=== PATIENT | female | born 1950 | race Caucasian/White ===

== ENCOUNTER 2017-07-06 21:19 | Inpatient (IN) | payer OTHER ==
--- NOTE | 2017-07-06 21:38 | PDOC ---
Rapid Medical Evaluation Time Seen by Provider: 07/06/17 21:33 Medical Evaluation: 07/06/17 21:33 The patient presents with a chief complaint of: Blood in the urine/brownish color since Sunday. Admits to nausea and vomiting. Denies back pain, fevers, frequency and urgency I have performed a brief in-person evaluation of this patient; Pertinent physical exam findings: ambulatory, in no respiratory distress. No CVA tenderness I have ordered the following: UA, UC, CBC, CMP The patient will proceed to the ED for further evaluation.
[2017-07-06 21:39] VITALS: BMI 33.6
[2017-07-06 22:04] LABS: BASO % 0.4 % (0-2.0); HEMATOCRIT 37.7 % (32.4-45.2); HEMOGLOBIN 12.9 GM/dL (10.7-15.3); LYMPH % 33.8 % (8-40); MCH 28.9 pg (25.7-33.7); MCHC 34.1 g/dl (32.0-36.0); MEAN CELL VOLUME 84.6 fl (80-96); MEAN PLT VOLUME 9.8 fl (7.5-11.1); MONO % 10.8 % (3.8-10.2); PLATELET COUNT 151 K/MM3 (134-434); RBC 4.45 M/mm3 (3.60-5.2); RDW 14.8 % (11.6-15.6); WHITE BLOOD COUNT 4.2 K/mm3 (4.0-10.0)
[2017-07-06 22:13] LABS: URINE APPEARANCE CLEAR; URINE BILIRUBIN NEGATIVE (<2.0 mg/dL); URINE BLOOD 2+ (NEGATIVE); URINE COLOR AMBER; URINE GLUCOSE (UA) NEGATIVE (NEGATIVE); URINE KETONE NEGATIVE (NEGATIVE); URINE LEUK ESTERASE TRACE (NEGATIVE); URINE NITRITE NEGATIVE (NEGATIVE); URINE PROTEIN NEGATIVE (NEGATIVE); URINE UROBILINOGEN 4.0 E.U/dl mg/dL (0.2-1.0)
[2017-07-06 22:17] LABS: EPI CELLS RARE /HPF (FEW); URINE MUCUS MODERATE
--- NOTE | 2017-07-06 22:23 | PDOC ---
History of Present Illness - General History Source: Patient, Family Exam Limitations: No Limitations - History of Present Illness Initial Comments: 07/06/17 22:41 The patient is a 66 year old female with past significant history of hypertension, CVA( in 2013, with residual left sided facial droop), and cholelithiasis, who presents to the emergency department accompanied by granddaughter with abdominal pain and change in urine color for several days. The patient reports her symptoms began 5 days ago with abdominal pain, which she describes as a diffuse spasm. The patient reports hematuria since Sunday ( 07/03/2017), which caused concern resulting in the primary reason for coming to the ER. She denies any associated dysuria, frequency, urgency, or flank pain. The patient reports chills, hot flashes, nausea, and vomiting (nonbloody/ nonbilious). The patients daughter reports the patient was looking pale before coming to the ER. Granddaughter also reports the patients blood pressure is 159/ 76 mmHg. The patient reports her symptoms are not similar to her previous cholelithiasis flares. Allergies: NKDA Past Surgical History: No known past surgeries Social History: No history of smoking, ETOH or recreational drugs <Patricia Fong - Last Filed: 07/06/17 22:44> <Toby Lynn - Last Filed: 07/07/17 00:38> - General History Source: Patient, Family Exam Limitations: No Limitations <Bravo Chen - Last Filed: 07/07/17 01:50> - General Chief Complaint: Hematuria Stated Complaint: Urinary Problem/ABD PAIN Time Seen by Provider: 07/06/17 21:33 Past History <Patricia Fong - Last Filed: 07/06/17 22:44> <Toby Lynn - Last Filed: 07/07/17 00:38> - Suicide/Smoking/Psychosocial Hx Smoking History: Never smoked Have you smoked in the past 12 months: No Information on smoking cessation initiated: No Hx Alcohol Use: No Drug/Substance Use Hx: No <Bravo Chen - Last Filed: 07/07/17 01:50> - Past Medical History Allergies/Adverse Reactions: Allergies Allergy/AdvReac Type Severity Reaction Status Date / Time No Known Allergies Allergy Verified 07/06/17 21:39 Home Medications: Ambulatory Orders NK [No Known Home Medication] 07/06/17 Review of Systems - Review of Systems Able to Perform ROS?: Yes Comments:: 07/06/17 22:42 GENERAL/CONSTITUTIONAL: (+) chills and hot flashes. No fever or weakness. HEAD, EYES, EARS, NOSE AND THROAT: No change in vision. No ear pain or discharge. No sore throat. CARDIOVASCULAR: No chest pain or shortness of breath. RESPIRATORY: No cough, wheezing, or hemoptysis. GASTROINTESTINAL: (+)nausea, vomiting, No diarrhea or constipation. GENITOURINARY: (+) hematuria No dysuria, frequency, no flank pain. MUSCULOSKELETAL: No joint or muscle swelling or pain. No neck or back pain. SKIN: No rash NEUROLOGIC: No headache, vertigo, loss of consciousness, or change in strength/ sensation. ENDOCRINE: No increased thirst. No abnormal weight change. HEMATOLOGIC/LYMPHATIC: No anemia, easy bleeding, or history of blood clots. ALLERGIC/IMMUNOLOGIC: No hives or skin allergy. <Patricia Fong - Last Filed: 07/06/17 22:44> *Physical Exam - Vital Signs Last Vital Signs Temp Pulse Resp BP Pulse Ox 98.1 F 64 18 161/82 97 07/06/17 21:33 07/06/17 21:33 07/06/17 21:33 07/06/17 21:33 07/06/17 21:33 - Physical Exam Comments: 07/06/17 22:42 GENERAL: Awake, alert, and fully oriented, in no acute distress HEAD: Left facial droop, No signs of trauma EYES: PERRLA, EOMI, sclera anicteric, conjunctiva clear ENT: Auricles normal inspection, hearing grossly normal, nares patent, oropharynx clear without exudates. Moist mucosa NECK: Normal ROM, supple, no lymphadenopathy, JVD, or masses LUNGS: Breath sounds equal, clear to auscultation bilaterally. No wheezes, and no crackles HEART: Regular rate and rhythm, normal S1 and S2, no murmurs, rubs or gallops ABDOMEN: Soft, nontender, normoactive bowel sounds. No guarding, no rebound. No masses EXTREMITIES: Normal range of motion, no edema. No clubbing or cyanosis. No cords, erythema, or tenderness NEUROLOGICAL: Cranial nerves II through XII grossly intact. Normal speech, normal gait SKIN: Warm, Dry, normal turgor, no rashes or lesions noted. <Patricia Fong - Last Filed: 07/06/17 22:44> - Vital Signs Last Vital Signs Temp Pulse Resp BP Pulse Ox 98.1 F 64 18 161/82 97 07/06/17 21:33 07/06/17 21:33 07/06/17 21:33 07/06/17 21:33 07/06/17 21:33 <Toby Lynn - Last Filed: 07/07/17 00:38> - Vital Signs Last Vital Signs Temp Pulse Resp BP Pulse Ox 98.1 F 64 18 161/82 97 07/06/17 21:33 07/06/17 21:33 07/06/17 21:33 07/06/17 21:33 07/06/17 21:33 <Bravo Chen - Last Filed: 07/07/17 01:50> ED Treatment Course - LABORATORY CBC & Chemistry Diagram: 07/06/17 21:58 07/06/17 21:58 - ADDITIONAL ORDERS Additional order review: Laboratory Results 07/06/17 21:58 Urine Color Aliza Urine Appearance Clear Urine pH 5.0 Ur Specific [place] 1.023 Urine Protein Negative Urine Glucose (UA) Negative Urine Ketones Negative Urine Blood 2+ H Urine Nitrite Negative Urine Bilirubin Negative Urine Urobilinogen 4.0 e.u/dl H Ur Leukocyte Esterase Trace Urine WBC (Auto) 2 Urine RBC (Auto) 12 Ur Epithelial Cells Rare Urine Mucus Moderate 07/06/17 21:58 RBC 4.45 MCV 84.6 MCHC 34.1 RDW 14.8 MPV 9.8 Neutrophils % 55.0 Lymphocytes % 33.8 Monocytes % 10.8 H Eosinophils % 0.0 Basophils % 0.4 <Patricia Fong - Last Filed: 07/06/17 22:44> - LABORATORY CBC & Chemistry Diagram: 07/06/17 21:58 07/06/17 21:58 - ADDITIONAL ORDERS Additional order review: Laboratory Results 07/06/17 07/06/17 07/06/17 23:02 21:58 21:58 Sodium 142 Potassium 4.0 Chloride 108 H Carbon Dioxide 29 Anion Gap 5 L BUN 16 Creatinine 0.8 Creat Clearance w eGFR > 60 Random Glucose 87 Calcium 8.4 L Total Bilirubin 1.7 H AST 181 H ALT 302 H Alkaline Phosphatase 251 H Total Protein 6.7 Albumin 3.7 Lipase 356 Urine Color Aliza Urine Appearance Clear Urine pH 5.0 Ur Specific [place] 1.023 Urine Protein Negative Urine Glucose (UA) Negative Urine Ketones Negative Urine Blood 2+ H Urine Nitrite Negative Urine Bilirubin Negative Urine Urobilinogen 4.0 e.u/dl H Ur Leukocyte Esterase Trace Urine WBC (Auto) 2 Urine RBC (Auto) 12 Ur Epithelial Cells Rare Urine Mucus Moderate 07/06/17 21:58 RBC 4.45 MCV 84.6 MCHC 34.1 RDW 14.8 MPV 9.8 Neutrophils % 55.0 Lymphocytes % 33.8 Monocytes % 10.8 H Eosinophils % 0.0 Basophils % 0.4 - RADIOLOGY Radiograph Interpretation: 07/07/17 00:38 EXAM: US Abdomen INTERPRETED BY: Dr. Espinoza REVIEWED BY: Dr. Chen IMPRESSION: The liver is normal in size and contour with increased echogenicity compatible with steatosis. No intrahepatic biliary dilatation. No hepatic masses visualized. Prominent hepatic vessels are noted concerning for hepatic congestion. The gallbladder is surgically absent. Prominent common bile duct measuring up to 8.3 mm, possibly post cholecystectomy changes. The right kidney , visualized portions of the pancreas and visualized portions of the abdominal aorta are unremarkable <Toby Lynn - Last Filed: 07/07/17 00:38> - LABORATORY CBC & Chemistry Diagram: 07/06/17 21:58 07/06/17 21:58 - ADDITIONAL ORDERS Additional order review: 07/06/17 21:58 RBC 4.45 MCV 84.6 MCHC 34.1 RDW 14.8 MPV 9.8 Neutrophils % 55.0 Lymphocytes % 33.8 Monocytes % 10.8 H Eosinophils % 0.0 Basophils % 0.4 <Bravo Chen - Last Filed: 07/07/17 01:50> Medical Decision Making - Medical Decision Making 07/06/17 22:23 A portion of this note was documented by scribe services under my direction. I have reviewed the details of the note, within reason, and agree with the documentation with the following case summary and management plan written by me. Patient treated in the ED. Nursing notes are reviewed and incorporated into the medical decision-making. Vital signs reviewed. Peripheral IV access obtained by the nurse, laboratory studies are drawn and sent, reviewed and interpreted by myself. Vital Signs Temp Pulse Resp BP Pulse Ox 98.1 F 64 18 161/82 97 07/06/17 21:33 07/06/17 21:33 07/06/17 21:33 07/06/17 21:33 07/06/17 21:33 58-year-old female with past medical history of hypertension, stroke with residual left facial droop presents with dark color and hematuria urine for 3 days. Patient noticed that they have having epigastric abdominal discomfort that resolved persistently had discolored urination. Denies any associated dysuria, urinary frequency. Denies any new medications. Denies fevers or chills. Because a discussion urine, family prompted to bring the patient to the ED for evaluation. Differential includes cystitis, acute kidney injury, hyperbilirubinemia. Patient does have a history of gallstones. However, patient has no right upper quadrant pain. She also potentially consider choledocholithiasis. However, we' ll need labs and urinalysis reassess. 07/07/17 01:17 CBC, BMP 07/06/17 21:58 07/06/17 21:58 CMP Sodium 142 mmol/L (136-145) 07/06/17 21:58 Potassium 4.0 mmol/L (3.5-5.1) 07/06/17 21:58 Chloride 108 mmol/L (98-107) H 07/06/17 21:58 Carbon Dioxide 29 mmol/L (21-32) 07/06/17 21:58 Anion Gap 5 (8-16) L 07/06/17 21:58 BUN 16 mg/dL (7-18) 07/06/17 21:58 Creatinine 0.8 mg/dL (0.55-1.02) 07/06/17 21:58 Creat Clearance w eGFR > 60 (>60) 07/06/17 21:58 Random Glucose 87 mg/dL (74-106) 07/06/17 21:58 Calcium 8.4 mg/dL (8.5-10.1) L 07/06/17 21:58 Total Bilirubin 1.7 mg/dL (0.2-1.0) H 07/06/17 21:58 AST 181 U/L (15-37) H 07/06/17 21:58 ALT 302 U/L (12-78) H 07/06/17 21:58 Alkaline Phosphatase 251 U/L (45-117) H 07/06/17 21:58 Total Protein 6.7 g/dl (6.4-8.2) 07/06/17 21:58 Albumin 3.7 g/dl (3.4-5.0) 07/06/17 21:58 Lipase 356 U/L (73-393) 07/06/17 23:02 Noted to have elevated LFTs. Ultrasound was ordered given these findings. Demonstrates post surgical changes and 8.3 mm CBD. Given these findings, decision was made to admit the patient to the hospital for further evaluation. 07/07/17 01:[address] Peraza. Accepted to med/surg admission. Case discussed in detail with admitting physician including history, physical exam and ancillary studies. Admitting physician has assumed care for the patient, will follow all pending diagnostics and will complete the evaluation and treatment. 07/07/17 01:50 <Bravo Chen - Last Filed: 07/07/17 01:50> *DC/Admit/Observation/Transfer - Attestations Scribe Attestion: 07/06/17 22:44 Documentation prepared by Patricia Fong, acting as medical assistant for Bravo Chen MD. <Patricia Fong - Last Filed: 07/06/17 22:44> <Toby Lynn - Last Filed: 07/07/17 00:38> - Discharge Dispostion Admit: Yes <Bravo Chen - Last Filed: 07/07/17 01:50> Diagnosis at time of Disposition: Elevated LFTs - Discharge Dispostion Condition at time of disposition: Stable - Referrals Referrals: ON STAFF,NOT [Primary Care Provider] -
[2017-07-06 22:27] LABS: ALBUMIN 3.7 g/dl (3.4-5.0); ALK PHOS 251 U/L (45-117); ANION GAP 5 (8-16); BILIRUBIN,TOTAL 1.7 mg/dL (0.2-1.0); BLOOD UREA NITROGEN 16 mg/dL (7-18); CALCIUM 8.4 mg/dL (8.5-10.1); CHLORIDE 108 mmol/L (98-107); CO2 29 mmol/L (21-32); CREATININE 0.8 mg/dL (0.55-1.02); GLUCOSE,RANDOM 87 mg/dL (74-106); SGOT/AST 181 U/L (15-37); SGPT/ALT 302 U/L (12-78); SODIUM 142 mmol/L (136-145); TOT PROT 6.7 g/dl (6.4-8.2)
[2017-07-07] MEDS ORDERED: SODIUM CHLORIDE 1,000 ML IV STA (01:42)
[2017-07-07] MEDS ORDERED: ACETAMINOPHEN 1000 MG/100 ML VIAL (NON FORMULARY) IVPB PRN (02:45)
[2017-07-07] MEDS ORDERED: AMPICILLIN NA/SULBACTAM NA 1.5 GM in SODIUM CHLORIDE 100 ML IVPB ONE ×2 (02:46→06:00)
--- NOTE | 2017-07-07 02:48 | HP ---
CHIEF COMPLAINT: "i have a stomach spasm" PCP: none, just moved to [place] HISTORY OF PRESENT ILLNESS: This is a 66 yo f with PMH of cholelithiasis, HTN, CVA( in 2013, with residual left sided facial droop), who presents due to abdominal pain and red urine. Abd pain occurred on sun after a fatty meal, was epigastric radiating to RUW, spasmic, sharp, 9/10, lasted 20 min and resolved spontaneously, however patient has not felt well all week and experienced rigors on sunday. She has also lost her appetite. On sun she noticed that her urine turned dark red, which has never happened before, although she has been worked up for microcytic hematuria with custodial laborer years ago w/o any established dx or treatment. She reports a long history of episodic RUQ pain, especially after meals, since youth. She was told on prior occasion that she has cholelithiasis and fatty liver. She was hospitalized in 2013 for abd pain, n/v, was diagnosed with appendicitis and underwent lap appe.She currently denies f/c, abd pain, n/v/d/constipation, melena, hematochezia, dysuria, flank pain, cp, sob, sough, h/a. Abd US in ED shows steatosis, No intrahepatic biliary dilatation. Prominent hepatic vessels concerning for hepatic congestion. The gallbladder is surgically absent. Prominent common bile duct measuring up to 8.3 mm. She takes BP medications, her list is on [facility] ER course was notable for: (1)labs (2)abd us (3)IVF Recent Travel: denies PAST MEDICAL HISTORY: as above PAST SURGICAL HISTORY: as above Social History: lives with daughter, granddaughter Smoking: denies Alcohol:denies Drugs: denies Family History: noncontributory Allergies No Known Allergies Allergy (Verified 07/06/17 21:39) HOME MEDICATIONS: Home Medications Medication Instructions Recorded NK [No Known Home Medication] 07/06/17 REVIEW OF SYSTEMS CONSTITUTIONAL: Absent: fever, diaphoresis, generalized weakness, malaise, loss of appetite, weight change HEENT: Absent: rhinorrhea, nasal congestion, throat pain CARDIOVASCULAR: Absent: chest pain, syncope, palpitations, irregular heart rate, lightheadedness , peripheral edema RESPIRATORY: Absent: cough, shortness of breath GASTROINTESTINAL: Absent: abdominal distension, nausea, vomiting, diarrhea, constipation, melena, hematochezia GENITOURINARY: Absent: dysuria, flank pain, genital pain MUSCULOSKELETAL: Absent: back pain, neck pain SKIN: Absent: rash, itching, pallor HEMATOLOGIC/IMMUNOLOGIC: Absent: easy bleeding, easy bruising ENDOCRINE: Absent: unexplained weight gain, unexplained weight loss, heat intolerance, cold intolerance NEUROLOGIC: Absent: headache, dizziness, unsteady gait, bladder or bowel incontinence PSYCHIATRIC: Absent: anxiety, depression PHYSICAL EXAMINATION Vital Signs - 24 hr 07/06/17 21:33 Temperature 98.1 F Pulse Rate 64 Respiratory 18 Rate Blood Pressure 161/82 O2 Sat by Pulse 97 Oximetry (%) GENERAL: Awake, alert, and fully oriented, in no acute distress. HEAD: Normal with no signs of trauma. EYES: Pupils equal, round and reactive to light, extraocular movements intact, sclera anicteric, conjunctiva clear. No lid lag. EARS, NOSE, THROAT: Moist mucous membranes. NECK: supple without JVD LUNGS: Breath sounds equal, clear to auscultation bilaterally. HEART: Regular rate and rhythm, normal S1 and S2 ABDOMEN: Soft, nontender, not distended, normoactive bowel sounds, no guarding, no rebound, no masses. Alonzo negative MUSCULOSKELETAL: No CVA tenderness. UPPER EXTREMITIES: 2+ pulses, warm, well-perfused. No cyanosis. No clubbing. No peripheral edema. LOWER EXTREMITIES: 2+ pulses, warm, well-perfused. No calf tenderness. No peripheral edema. NEUROLOGICAL: residual L facial droop, L hearing loss. Normal speech. strenght 5/5 b/l in all extremities, sensation intact. PSYCHIATRIC: Cooperative. Good eye contact. Appropriate mood and affect. SKIN: Warm, dry Laboratory Results - last 24 hr 07/06/17 07/06/17 07/06/17 21:58 21:58 21:58 WBC 4.2 RBC 4.45 Hgb 12.9 Hct 37.7 MCV 84.6 MCH 28.9 MCHC 34.1 RDW 14.8 Plt Count 151 MPV 9.8 Neutrophils % 55.0 Lymphocytes % 33.8 Monocytes % 10.8 H Eosinophils % 0.0 Basophils % 0.4 Sodium 142 Potassium 4.0 Chloride 108 H Carbon Dioxide 29 Anion Gap 5 L BUN 16 Creatinine 0.8 Creat Clearance w eGFR > 60 Random Glucose 87 Calcium 8.4 L Total Bilirubin 1.7 H AST 181 H ALT 302 H Alkaline Phosphatase 251 H Total Protein 6.7 Albumin 3.7 Lipase Urine Color Aliza Urine Appearance Clear Urine pH 5.0 Ur Specific [place] 1.023 Urine Protein Negative Urine Glucose (UA) Negative Urine Ketones Negative Urine Blood 2+ H Urine Nitrite Negative Urine Bilirubin Negative Urine Urobilinogen 4.0 e.u/dl H Ur Leukocyte Esterase Trace Urine WBC (Auto) 2 Urine RBC (Auto) 12 Ur Epithelial Cells Rare Urine Mucus Moderate 07/06/17 23:02 WBC RBC Hgb Hct MCV MCH MCHC RDW Plt Count MPV Neutrophils % Lymphocytes % Monocytes % Eosinophils % Basophils % Sodium Potassium Chloride Carbon Dioxide Anion Gap BUN Creatinine Creat Clearance w eGFR Random Glucose Calcium Total Bilirubin AST ALT Alkaline Phosphatase Total Protein Albumin Lipase 356 Urine Color Urine Appearance Urine pH Ur Specific [place] Urine Protein Urine Glucose (UA) Urine Ketones Urine Blood Urine Nitrite Urine Bilirubin Urine Urobilinogen Ur Leukocyte Esterase Urine WBC (Auto) Urine RBC (Auto) Ur Epithelial Cells Urine Mucus ASSESSMENT/PLAN: This is a 66 yo f with PMH of cholelithiasis, HTN, CVA( in 2013, with residual left sided facial droop), who presents due to abdominal pain and red urine. Acute transaminitis, hyperbilirubinemia, bilirubinuria -suspicious for choledocholithiasis -RUQ US appreciated. absent GB w/o history of cholecystectomy. dilated cbd 8mm. hepatic steatosis. f/u abd CT w contrast -afebrile, no leukocytosis -IVF hydration -f/u cultures -One dose iv Unasyn ppx -NPO -coags, type/screen -Gi consult for possible MRCP Chronic Microscopic hematuria -2+ on ua -f/u outpatient HTN -161/82 -will call granddaughter in the morning to obtain home med list and will restart CVA -stable residual deficits FEN NS @ 100 lytes stable npo SCDs Dispo: adm ms Problem List - Problem (1) Hyperbilirubinemia Code(s): E80.6 - OTHER DISORDERS OF BILIRUBIN METABOLISM (2) Bilirubinuria Code(s): R82.2 - BILIURIA (3) HTN (hypertension) Code(s): I10 - ESSENTIAL (PRIMARY) HYPERTENSION (4) CVA, old, alterations of sensations Code(s): I69.398 - OTHER SEQUELAE OF CEREBRAL INFARCTION; R20.9 - UNSPECIFIED DISTURBANCES OF SKIN SENSATION (5) Elevated LFTs Code(s): R79.89 - OTHER SPECIFIED ABNORMAL FINDINGS OF BLOOD CHEMISTRY Visit type - Emergency Visit Emergency Visit: Yes ED Registration Date: 07/07/17 Care time: The patient presented to the Emergency Department on the above date and was hospitalized for further evaluation of their emergent condition. - New Patient This patient is new to me today: Yes Date on this admission: 07/07/17 - Critical Care Critical Care patient: No Hospitalist Screening - Colonoscopy Questionnaire Colonoscopy Questionnaire: Colonoscopy Questionnaire - Patient: 50 - 75 years old and never had a screening colonoscopy: No History of colon or rectal polyps, or CA: No History of IBD, Crohn's disease or UC: No History of abdominal radiation therapy as a child: No - Relative: 1 with colon or rectal CA, or polyps at age 60 or younger: No Colon or rectal CA diagnosed at age 45 or younger: No Multiple relatives with colon or rectal CA: No - Outcome: Screening Result: Negative Screen
[2017-07-07] MEDS: SODIUM CHLORIDE 1,000 ML IV SCH (03:54)
--- NOTE | 2017-07-07 06:03 | PN ---
Teaching Attending Note Name of Resident: Melina Gipson ATTENDING PHYSICIAN STATEMENT I saw and evaluated the patient. I reviewed the resident's note and discussed the case with the resident. I agree with the resident's findings and plan as documented. SUBJECTIVE: 66 y/o female presented to the hospital for RUQ pain found to have elevated liver enzymes and dilated common bile duct OBJECTIVE: AAOX3 s1 and S2 RRR RUQ pain with deep palpation no edema lungs CTA ASSESSMENT AND PLAN: This is a 66 yo f with PMH of cholelithiasis, HTN, CVA( in 2013, with residual left sided facial droop), who presents due to abdominal pain and red urine. Acute transaminitis, hyperbilirubinemia, bilirubinuria -suspicious for choledocholithiasis -RUQ US appreciated. absent GB w/o history of cholecystectomy. dilated cbd 8mm. hepatic steatosis. f/u abd CT w contrast -IVF hydration -f/u cultures -One dose iv Unasyn ppx -NPO -Gi consult for possible MRCP Chronic Microscopic hematuria -2+ on ua -f/u outpatient HTN -161/82 -will call granddaughter in the morning to obtain home med list and will restart
[2017-07-07 08:17] LABS: BASO % 0.1 % (0-2.0); HEMATOCRIT 35.5 % (32.4-45.2); LYMPH % 29.5 % (8-40); MCH 28.5 pg (25.7-33.7); MCHC 33.8 g/dl (32.0-36.0); MEAN CELL VOLUME 84.4 fl (80-96); MEAN PLT VOLUME 9.9 fl (7.5-11.1); MONO % 9.6 % (3.8-10.2); NEUT % 60.8 % (42.8-82.8); PLATELET COUNT 117 K/MM3 (134-434); RBC 4.21 M/mm3 (3.60-5.2); RDW 15.1 % (11.6-15.6); WHITE BLOOD COUNT 3.2 K/mm3 (4.0-10.0)
[2017-07-07 08:34] LABS: INR 1.08 (0.82-1.09); PROTHROMBIN TIME (PATIENT) 12.2 SEC (9.98-11.88)
[2017-07-07 08:40] LABS: ALBUMIN 3.5 g/dl (3.4-5.0); ANION GAP 4 (8-16); BLOOD UREA NITROGEN 14 mg/dL (7-18); CALCIUM 8.5 mg/dL (8.5-10.1); CHLORIDE 110 mmol/L (98-107); CO2 29 mmol/L (21-32); CREATININE 0.7 mg/dL (0.55-1.02); GLUCOSE,RANDOM 82 mg/dL (74-106); MAGNESIUM 2.1 mg/dL (1.8-2.4); PHOSPHOROUS 2.8 mg/dL (2.5-4.9); POTASSIUM 4.5 mmol/L (3.5-5.1); SGOT/AST 144 U/L (15-37); SGPT/ALT 259 U/L (12-78); SODIUM 143 mmol/L (136-145)
[2017-07-07 08:42] LABS: ALK PHOS 225 U/L (45-117)
--- NOTE | 2017-07-07 14:24 | CON.GI ---
Consult - Past Medical History ...: No - Alcohol/Substance Use Hx Alcohol Use: No - Smoking History Smoking history: Never smoked Have you smoked in the past 12 months: No Home Medications - Allergies Allergies/Adverse Reactions: Allergies Allergy/AdvReac Type Severity Reaction Status Date / Time No Known Allergies Allergy Verified 07/06/17 21:39 - Home Medications Home Medications: Ambulatory Orders NK [No Known Home Medication] 07/06/17 Physical Exam-GI Vital Signs: Vital Signs Temperature 98.2 F 07/07/17 04:31 Pulse Rate 61 07/07/17 04:31 Respiratory Rate 18 07/07/17 04:31 Blood Pressure 143/77 07/07/17 04:31 O2 Sat by Pulse Oximetry (%) 98 07/07/17 04:31 Labs: CBC, BMP 07/07/17 07:27 07/07/17 07:27 INR, PTT INR 1.08 (0.82-1.09) 07/07/17 07:27
--- NOTE | 2017-07-07 14:56 | PN ---
Physical Exam: SUBJECTIVE: Patient seen and examined Patient is c/o having orange color urine, also was having chills at home. OBJECTIVE: Vital Signs Temperature 98.2 F 07/07/17 04:31 Pulse Rate 61 07/07/17 04:31 Respiratory Rate 18 07/07/17 04:31 Blood Pressure 143/77 07/07/17 04:31 O2 Sat by Pulse Oximetry (%) 98 07/07/17 04:31 GENERAL: The patient is awake, alert, and fully oriented, in no acute distress. HEAD: Normal with no signs of trauma. EYES: PERRL, extraocular movements intact, sclera anicteric, conjunctiva clear. ENT: Ears normal, oropharynx clear without exudates, moist mucous membranes. NECK: Trachea midline, full range of motion, supple. LUNGS: Breath sounds equal, clear to auscultation bilaterally, no wheezes, no crackles, no accessory muscle use. HEART: Regular rate and rhythm, S1, S2 positive . ABDOMEN: Soft, midepigastric mild tenderness , nondistended, normoactive bowel sounds, no guarding, no rebound. Mild splenomegaly. EXTREMITIES: 2+ pulses, warm, well-perfused, no edema. NEUROLOGICAL: Cranial nerves II through XII grossly intact. Normal speech, gait not observed. PSYCH: Normal mood, normal affect. SKIN: Warm, dry, normal turgor, no rashes or lesions noted CBCD WBC 3.2 K/mm3 (4.0-10.0) L 07/07/17 07:27 RBC 4.21 M/mm3 (3.60-5.2) 07/07/17 07:27 Hgb 12.0 GM/dL (10.7-15.3) 07/07/17 07:27 Hct 35.5 % (32.4-45.2) 07/07/17 07:27 MCV 84.4 fl (80-96) 07/07/17 07:27 MCHC 33.8 g/dl (32.0-36.0) 07/07/17 07:27 RDW 15.1 % (11.6-15.6) 07/07/17 07:27 Plt Count 117 K/MM3 (134-434) L D 07/07/17 07:27 MPV 9.9 fl (7.5-11.1) 07/07/17 07:27 CMP Sodium 143 mmol/L (136-145) 07/07/17 07:27 Potassium 4.5 mmol/L (3.5-5.1) 07/07/17 07:27 Chloride 110 mmol/L (98-107) H 07/07/17 07:27 Carbon Dioxide 29 mmol/L (21-32) 07/07/17 07:27 Anion Gap 4 (8-16) L 07/07/17 07:27 BUN 14 mg/dL (7-18) 07/07/17 07:27 Creatinine 0.7 mg/dL (0.55-1.02) 07/07/17 07:27 Creat Clearance w eGFR > 60 (>60) 07/07/17 07:27 Random Glucose 82 mg/dL (74-106) 07/07/17 07:27 Calcium 8.5 mg/dL (8.5-10.1) 07/07/17 07:27 Total Bilirubin 2.0 mg/dL (0.2-1.0) H 07/07/17 07:27 AST 144 U/L (15-37) H 07/07/17 07:27 ALT 259 U/L (12-78) H 07/07/17 07:27 Alkaline Phosphatase 225 U/L (45-117) H 07/07/17 07:27 Total Protein 6.0 g/dl (6.4-8.2) L 07/07/17 07:27 Albumin 3.5 g/dl (3.4-5.0) 07/07/17 07:27 Current Medications Generic Name Dose Route Start Last Admin Trade Name Mason PRN Reason Stop Dose Admin Acetaminophen 1,000 mg 07/07/17 02:45 Ofirmev Injection - IVPB Q6H PRN PAIN LEVEL 1-5 Sodium Chloride 1,000 mls @ 100 mls/hr 07/07/17 02:45 07/07/17 03:54 Normal Saline - IV 100 mls/hr ASDIR ALDAIR Administration Home Medications Medication Instructions Recorded NK [No Known Home Medication] 07/06/17 A/P: This is a 66 yo f with PMHx of cholelithiasis, HTN, CVA( in 2013, with residual left sided facial droop), who presents due to abdominal pain and red urine. # Acute midabdominal pain with elevated LFTs with hyperbilirubinuria going for MRI r/o choledocholithiasis, c/o having Rigors on and off -RUQ US appreciated. absent GB w/o history of cholecystectomy. dilated cbd 8mm. hepatic steatosis. f/u abd CT w contrast continue IVF hydration, Iv antibiotic Rocephin/flagyl IV , NPO , Gi consult appreciated. -Gi consult for possible MRCP #HTN :will call granddaughter in the morning to obtain home med list and will restart # Chronic Microscopic hematuria , patient has no urinary symptoms , f/u outpatient DVT Px: scds, early ambulation Visit type - Emergency Visit Emergency Visit: Yes ED Registration Date: 07/07/17 Care time: The patient presented to the Emergency Department on the above date and was hospitalized for further evaluation of their emergent condition. - New Patient This patient is new to me today: Yes Date on this admission: 07/08/17 - Critical Care Critical Care patient: No - Discharge Referral Referred to [facility] Med P.C.: No
[2017-07-07] MEDS ORDERED: CEFTRIAXONE 1 GM in DEXTROSE 5%-WATER - 100 ML IVPB SCH (15:15)
--- NOTE | 2017-07-07 17:31 | CON.GI ---
Consult Consult Specialty:: GI Reason for Consultation:: Abnormal liver ezymes - History of Present Illness History of Present Illness: Chart reviewed. Evens noted. A 66F with RUQ abdominal pain x 1 day on Sunday. Had chills and hematurea, w/o dysurea, from Sunday to admission. No nausea, vomiting, diarrhea, jaundice, weight loss, dysphagia, or odynophagia. Noted to have cholestasis and hepatitis pattern on blood work on admission. No gross hematurea, but dark yellow urine noted while in the hospital. Had MRI and CT of the A/P in 2017 - fatty liver. Had normal EGD and colonoscopy in 2017 in [place] [address]. Frey. Reports having appendectomy in 2014 at [facility]. Denies having cholecystectomy, but imaging reports post yessenia changes. This am appears comfortable, not in diostress. No abdominal symptoms, or tenderness on exam. US of the liver - s/p cholesystectomy, CBD [address] - ? choledocolithiasis ?GB remnant, CBD 8 mm. - History Source History Provided By: Patient, Medical Record - Past Medical History ...: No - Alcohol/Substance Use Hx Alcohol Use: No - Smoking History Smoking history: Never smoked Have you smoked in the past 12 months: No Home Medications - Allergies Allergies/Adverse Reactions: Allergies Allergy/AdvReac Type Severity Reaction Status Date / Time No Known Allergies Allergy Verified 07/06/17 21:39 - Home Medications Home Medications: Ambulatory Orders Escitalopram Oxalate [Lexapro -] 10 tab PO DAILY 07/07/17 Meclizine HCl 25 tab PO DAILY 07/07/17 Metoprolol Tartrate 25 tab PO BID 07/07/17 Omeprazole 20 mg PO DAILY 07/07/17 Simvastatin 10 mg PO HS 07/07/17 Temazepam [Restoril] 15 PO HS 07/07/17 Vitamin B Complex 1 tablet PO DAILY 07/07/17 Vitamin D - WEEKLY 07/07/17 Review of Systems Findings/Remarks: as per HPI, H&P Physical Exam-GI Vital Signs: Vital Signs Temperature 98.1 F 07/07/17 14:59 Pulse Rate 53 L 07/07/17 14:59 Respiratory Rate 18 07/07/17 14:59 Blood Pressure 111/61 07/07/17 14:59 O2 Sat by Pulse Oximetry (%) 98 07/07/17 09:00 Constitutional: Yes: Well Nourished, No Distress, Calm Eyes: Yes: Conjunctiva Clear. No: Sclera Icterus HENT: Yes: Other (r. facial droop) Neck: Yes: Supple Cardiovascular: Yes: Regular Rate and Rhythm Gastrointestinal Inspection: No: Ascites, Distention ...Auscultate: Yes: Normoactive Bowel Sounds ...Palpate: Yes: Soft. No: Firm/Rigid, Guarding, Hepatomegaly, Mass, Tenderness , Tenderness, Epigastium, Tenderness, Rebound ...Percussion: No: Fluid Wave Edema: No Neurological: Yes: Alert, Oriented Labs: CBC, BMP 07/07/17 07:27 07/07/17 07:27 INR, PTT INR 1.08 (0.82-1.09) 07/07/17 07:27 CBCD WBC 3.2 K/mm3 (4.0-10.0) L 07/07/17 07:27 RBC 4.21 M/mm3 (3.60-5.2) 07/07/17 07:27 Hgb 12.0 GM/dL (10.7-15.3) 07/07/17 07:27 Hct 35.5 % (32.4-45.2) 07/07/17 07:27 MCV 84.4 fl (80-96) 07/07/17 07:27 MCHC 33.8 g/dl (32.0-36.0) 07/07/17 07:27 RDW 15.1 % (11.6-15.6) 07/07/17 07:27 Plt Count 117 K/MM3 (134-434) L D 07/07/17 07:27 MPV 9.9 fl (7.5-11.1) 07/07/17 07:27 CMP Sodium 143 mmol/L (136-145) 07/07/17 07:27 Potassium 4.5 mmol/L (3.5-5.1) 07/07/17 07:27 Chloride 110 mmol/L (98-107) H 07/07/17 07:27 Carbon Dioxide 29 mmol/L (21-32) 07/07/17 07:27 Anion Gap 4 (8-16) L 07/07/17 07:27 BUN 14 mg/dL (7-18) 07/07/17 07:27 Creatinine 0.7 mg/dL (0.55-1.02) 07/07/17 07:27 Creat Clearance w eGFR > 60 (>60) 07/07/17 07:27 Calcium 8.5 mg/dL (8.5-10.1) 07/07/17 07:27 Total Bilirubin 2.0 mg/dL (0.2-1.0) H 07/07/17 07:27 AST 144 U/L (15-37) H 07/07/17 07:27 ALT 259 U/L (12-78) H 07/07/17 07:27 Alkaline Phosphatase 225 U/L (45-117) H 07/07/17 07:27 Total Protein 6.0 g/dl (6.4-8.2) L 07/07/17 07:27 Albumin 3.5 g/dl (3.4-5.0) 07/07/17 07:27 Imaging - Results Cat Scan: Report Reviewed Ultrasound: Report Reviewed Problem List - Problems (1) Abnormal CT of liver Code(s): R93.2 - ABNORMAL FINDINGS ON DX IMAGING OF LIVER AND BILIARY TRACT (2) Abnormal CT of the abdomen Code(s): R93.5 - ABN FINDINGS ON DX IMAGING OF ABD REGIONS, INC RETROPERITON (3) Bilirubinuria Code(s): R82.2 - BILIURIA (4) CVA, old, alterations of sensations Code(s): I69.398 - OTHER SEQUELAE OF CEREBRAL INFARCTION; R20.9 - UNSPECIFIED DISTURBANCES OF SKIN SENSATION (5) Elevated LFTs Code(s): R79.89 - OTHER SPECIFIED ABNORMAL FINDINGS OF BLOOD CHEMISTRY (6) Hyperbilirubinemia Code(s): E80.6 - OTHER DISORDERS OF BILIRUBIN METABOLISM Assessment/Plan RUQ abdominal pain, chills at home and dark urine. Cholestasis/hepatitis pattern. ? choledocolithiasis. Keep NPO IVF Abx to cover biliary system MRCP, followed by ERCP if cholediocolithiasis is indeed present. Close monitoring for signs of cholagitis.
[2017-07-08] MEDS: SODIUM CHLORIDE 1,000 ML IV SCH (03:18)
[2017-07-08 08:41] LABS: BASO % 0.2 % (0-2.0); HEMATOCRIT 35.7 % (32.4-45.2); HEMOGLOBIN 11.9 GM/dL (10.7-15.3); LYMPH % 25.2 % (8-40); MCH 28.5 pg (25.7-33.7); MCHC 33.4 g/dl (32.0-36.0); MEAN CELL VOLUME 85.3 fl (80-96); MEAN PLT VOLUME 10.1 fl (7.5-11.1); NEUT % 64.6 % (42.8-82.8); PLATELET COUNT 112 K/MM3 (134-434); RBC 4.19 M/mm3 (3.60-5.2); RDW 15.2 % (11.6-15.6); WHITE BLOOD COUNT 2.7 K/mm3 (4.0-10.0)
[2017-07-08 09:07] LABS: CHLORIDE 111 mmol/L (98-107); POTASSIUM 4.7 mmol/L (3.5-5.1); SODIUM 144 mmol/L (136-145)
[2017-07-08 09:19] LABS: ALBUMIN 3.4 g/dl (3.4-5.0); ALK PHOS 252 U/L (45-117); ANION GAP 7 (8-16); BILIRUBIN,DIRECT 1.1 mg/dL (0.0-0.2); BILIRUBIN,TOTAL 1.8 mg/dL (0.2-1.0); BLOOD UREA NITROGEN 9 mg/dL (7-18); CALCIUM 8.5 mg/dL (8.5-10.1); CO2 26 mmol/L (21-32); CREATININE 0.7 mg/dL (0.55-1.02); GLUCOSE,RANDOM 85 mg/dL (74-106); SGOT/AST 121 U/L (15-37); SGPT/ALT 216 U/L (12-78); TOT PROT 5.9 g/dl (6.4-8.2)
[2017-07-08] MEDS ORDERED: cefTRIAXone SODIUM 1 GM VIAL ONE (10:00)
[2017-07-08] MEDS ORDERED: DEXTROSE 5%-WATER - 50 ML IVPB ONE (10:00)
[2017-07-08] MEDS: CEFTRIAXONE 1 GM in DEXTROSE 5%-WATER - 50 ML IVPB SCH (10:04)
--- NOTE | 2017-07-08 16:09 | PN ---
Progress Note (short form) - Note Progress Note: Patient is feeling better but continues to have mild epigastric pain on and off. Vital Signs Temperature 98.8 F 07/08/17 15:50 Pulse Rate 68 07/08/17 15:50 Respiratory Rate 20 07/08/17 15:50 Blood Pressure 140/86 07/08/17 15:50 O2 Sat by Pulse Oximetry (%) 98 07/08/17 09:00 GENERAL: The patient is awake, alert, and fully oriented, in no acute distress. HEAD: Normal with no signs of trauma. EYES: PERRL, extraocular movements intact, sclera anicteric, conjunctiva clear. ENT: Ears normal, oropharynx clear without exudates, moist mucous membranes. NECK: Trachea midline, full range of motion, supple. LUNGS: Breath sounds equal, clear to auscultation bilaterally, no wheezes, no crackles, no accessory muscle use. HEART: Regular rate and rhythm, S1, S2 positive . ABDOMEN: Soft, midepigastric mild tenderness , nondistended, normoactive bowel sounds, no guarding, no rebound. positive splenomegaly. EXTREMITIES: 2+ pulses, warm, well-perfused, no edema. NEUROLOGICAL: Cranial nerves II through XII grossly intact. Normal speech, gait not observed. PSYCH: Normal mood, normal affect. SKIN: Warm, dry, normal turgor, no rashes or lesions noted CBCD WBC 2.7 K/mm3 (4.0-10.0) L 07/08/17 07:00 RBC 4.19 M/mm3 (3.60-5.2) 07/08/17 07:00 Hgb 11.9 GM/dL (10.7-15.3) 07/08/17 07:00 Hct 35.7 % (32.4-45.2) 07/08/17 07:00 MCV 85.3 fl (80-96) 07/08/17 07:00 MCHC 33.4 g/dl (32.0-36.0) 07/08/17 07:00 RDW 15.2 % (11.6-15.6) 07/08/17 07:00 Plt Count 112 K/MM3 (134-434) L 07/08/17 07:00 MPV 10.1 fl (7.5-11.1) 07/08/17 07:00 CMP Sodium 144 mmol/L (136-145) 07/08/17 07:00 Potassium 4.7 mmol/L (3.5-5.1) 07/08/17 07:00 Chloride 111 mmol/L (98-107) H 07/08/17 07:00 Carbon Dioxide 26 mmol/L (21-32) 07/08/17 07:00 Anion Gap 7 (8-16) L 07/08/17 07:00 BUN 9 mg/dL (7-18) 07/08/17 07:00 Creatinine 0.7 mg/dL (0.55-1.02) 07/08/17 07:00 Creat Clearance w eGFR > 60 (>60) 07/08/17 07:00 Random Glucose 85 mg/dL (74-106) 07/08/17 07:00 Calcium 8.5 mg/dL (8.5-10.1) 07/08/17 07:00 Total Bilirubin 1.8 mg/dL (0.2-1.0) H 07/08/17 07:00 AST 121 U/L (15-37) H 07/08/17 07:00 ALT 216 U/L (12-78) H 07/08/17 07:00 Alkaline Phosphatase 252 U/L (45-117) H 07/08/17 07:00 Total Protein 5.9 g/dl (6.4-8.2) L 07/08/17 07:00 Albumin 3.4 g/dl (3.4-5.0) 07/08/17 07:00 Current Medications Generic Name Dose Route Start Last Admin Trade Name Mason PRN Reason Stop Dose Admin Acetaminophen 1,000 mg 07/07/17 02:45 Ofirmev Injection - IVPB Q6H PRN PAIN LEVEL 1-5 Sodium Chloride 1,000 mls @ 100 mls/hr 07/07/17 02:45 07/08/17 03:18 Normal Saline - IV Not Given ASDIR ALDAIR Metronidazole 500 mg in 100 mls @ 100 mls/hr 07/07/17 15:15 07/08/17 10:57 Flagyl 500mg Premixed Ivpb - IVPB 100 mls/hr Q8H-IV ALDAIR Administration Ceftriaxone Sodium 1 gm/ 50 mls @ 200 mls/hr 07/07/17 15:26 07/08/17 10:04 Dextrose IVPB 200 mls/hr DAILY ALDAIR Administration Home Medications Medication Instructions Recorded Escitalopram Oxalate [Lexapro -] 10 tab PO DAILY 07/07/17 Meclizine HCl 25 tab PO DAILY 07/07/17 Metoprolol Tartrate 25 tab PO BID 07/07/17 Omeprazole 20 mg PO DAILY 07/07/17 Simvastatin 10 mg PO HS 07/07/17 Temazepam [Restoril] 15 PO HS 07/07/17 Vitamin B Complex 1 tablet PO DAILY 07/07/17 Vitamin D - WEEKLY 07/07/17 A/P: This is a 66 yo f with PMHx of cholelithiasis, HTN, CVA who presents due to md epigastric pain and hematuria. # Acute midabdominal pain with elevated LFTs improving with hyperbilirubinuria. s/p MRcp , reviewed the result. discussed with , patient needs ERCP. continue IVF hydration, Iv antibiotic Rocephin/flagyl IV , NPO , Gi consult appreciated. #HTN :discussed with granddaughter regarding her status # Chronic Microscopic hematuria , patient has no urinary symptoms , f/u outpatient DVT Px: scds, early ambulation Visit type - Emergency Visit Emergency Visit: Yes ED Registration Date: 07/07/17 Care time: The patient presented to the Emergency Department on the above date and was hospitalized for further evaluation of their emergent condition. - New Patient This patient is new to me today: No - Critical Care Critical Care patient: No - Discharge Referral Referred to [facility] Med P.C.: No
[2017-07-08] MEDS: ESCITALOPRAM OXALATE 10 MG TABLET (FP) PO SCH (17:40)
--- NOTE | 2017-07-08 18:38 | PN ---
Progress Note, Physician History of Present Illness: Asymptomatic. MRI results noted. Discussed with the patient. Plan ERCP. - Current Medication List Current Medications: Active Medications Acetaminophen (Ofirmev Injection -) 1,000 mg IVPB Q6H PRN PRN Reason: PAIN LEVEL 1-5 Escitalopram Oxalate (Lexapro -) 10 mg PO DAILY [facility] Last Admin: 07/08/17 17:40 Dose: 10 mg Sodium Chloride (Normal Saline -) 1,000 mls @ 100 mls/hr IV ASDIR [facility] Last Admin: 07/08/17 03:18 Dose: Not Given Metronidazole (Flagyl 500mg Premixed Ivpb -) 500 mg in 100 mls @ 100 mls/hr IVPB Q8H-IV [facility] Last Admin: 07/08/17 17:40 Dose: 100 mls/hr Ceftriaxone Sodium 1 gm/ (Dextrose) 50 mls @ 200 mls/hr IVPB DAILY [facility] Last Admin: 07/08/17 10:04 Dose: 200 mls/hr Metoprolol Tartrate (Lopressor -) 25 mg PO BID [facility] - Objective Vital Signs: Vital Signs Temperature 98.8 F 07/08/17 15:50 Pulse Rate 68 07/08/17 15:50 Respiratory Rate 20 07/08/17 15:50 Blood Pressure 140/86 07/08/17 15:50 O2 Sat by Pulse Oximetry (%) 98 07/08/17 09:00 Constitutional: Yes: Well Nourished, No Distress, Calm Eyes: Yes: Conjunctiva Clear HENT: Yes: Atraumatic Neck: Yes: Supple Cardiovascular: Yes: Regular Rate and Rhythm Respiratory: Yes: Regular Gastrointestinal: Yes: Normal Bowel Sounds, Soft. No: Ascites, Distention, Melena, Rectal Bleeding, Tenderness Neurological: Yes: Alert, Oriented Labs: CBC, BMP 07/08/17 07:00 07/08/17 07:00 INR, PTT INR 1.08 (0.82-1.09) 07/07/17 07:27 CBCD WBC 2.7 K/mm3 (4.0-10.0) L 07/08/17 07:00 RBC 4.19 M/mm3 (3.60-5.2) 07/08/17 07:00 Hgb 11.9 GM/dL (10.7-15.3) 07/08/17 07:00 Hct 35.7 % (32.4-45.2) 07/08/17 07:00 MCV 85.3 fl (80-96) 07/08/17 07:00 MCHC 33.4 g/dl (32.0-36.0) 07/08/17 07:00 RDW 15.2 % (11.6-15.6) 07/08/17 07:00 Plt Count 112 K/MM3 (134-434) L 07/08/17 07:00 MPV 10.1 fl (7.5-11.1) 07/08/17 07:00 CMP Sodium 144 mmol/L (136-145) 07/08/17 07:00 Potassium 4.7 mmol/L (3.5-5.1) 07/08/17 07:00 Chloride 111 mmol/L (98-107) H 07/08/17 07:00 Carbon Dioxide 26 mmol/L (21-32) 07/08/17 07:00 Anion Gap 7 (8-16) L 07/08/17 07:00 BUN 9 mg/dL (7-18) 07/08/17 07:00 Creatinine 0.7 mg/dL (0.55-1.02) 07/08/17 07:00 Creat Clearance w eGFR > 60 (>60) 07/08/17 07:00 Calcium 8.5 mg/dL (8.5-10.1) 07/08/17 07:00 Total Bilirubin 1.8 mg/dL (0.2-1.0) H 07/08/17 07:00 AST 121 U/L (15-37) H 07/08/17 07:00 ALT 216 U/L (12-78) H 07/08/17 07:00 Alkaline Phosphatase 252 U/L (45-117) H 07/08/17 07:00 Total Protein 5.9 g/dl (6.4-8.2) L 07/08/17 07:00 Albumin 3.4 g/dl (3.4-5.0) 07/08/17 07:00 Problem List - Problems (1) Abnormal CT of liver Code(s): R93.2 - ABNORMAL FINDINGS ON DX IMAGING OF LIVER AND BILIARY TRACT (2) Abnormal CT of the abdomen Code(s): R93.5 - ABN FINDINGS ON DX IMAGING OF ABD REGIONS, INC RETROPERITON (3) Bilirubinuria Code(s): R82.2 - BILIURIA (4) CVA, old, alterations of sensations Code(s): I69.398 - OTHER SEQUELAE OF CEREBRAL INFARCTION; R20.9 - UNSPECIFIED DISTURBANCES OF SKIN SENSATION (5) Elevated LFTs Code(s): R79.89 - OTHER SPECIFIED ABNORMAL FINDINGS OF BLOOD CHEMISTRY (6) Hyperbilirubinemia Code(s): E80.6 - OTHER DISORDERS OF BILIRUBIN METABOLISM Assessment/Plan RUQ abdominal pain, chills at home and dark urine. choledoco?lithiasis Keep NPO IVF Abx to cover biliary system ERCP Close monitoring for signs of cholagitis.
[2017-07-08] MEDS: METOPROLOL TARTRATE 25 MG TABLET (FP) PO SCH (21:01)
[2017-07-09] MEDS: SODIUM CHLORIDE 1,000 ML IV SCH ×2 (01:44→18:38)
[2017-07-09 08:05] LABS: BASO % 0.2 % (0-2.0); HEMATOCRIT 36.2 % (32.4-45.2); HEMOGLOBIN 11.9 GM/dL (10.7-15.3); LYMPH % 23.2 % (8-40); MCHC 32.8 g/dl (32.0-36.0); MEAN CELL VOLUME 85.5 fl (80-96); MEAN PLT VOLUME 10.1 fl (7.5-11.1); MONO % 9.3 % (3.8-10.2); NEUT % 67.3 % (42.8-82.8); PLATELET COUNT 113 K/MM3 (134-434); RBC 4.23 M/mm3 (3.60-5.2); WHITE BLOOD COUNT 3.4 K/mm3 (4.0-10.0)
[2017-07-09 08:18] LABS: INR 1.14 (0.82-1.09); PROTHROMBIN TIME (PATIENT) 12.9 SEC (9.98-11.88)
[2017-07-09 08:21] LABS: ACTIVATED PTT 29.4 SECONDS (26.9-34.4)
[2017-07-09 10:04] LABS: CHLORIDE 110 mmol/L (98-107); POTASSIUM 4.4 mmol/L (3.5-5.1); SODIUM 143 mmol/L (136-145)
[2017-07-09] MEDS ORDERED: cefTRIAXone SODIUM 1 GM VIAL ONE (10:14)
[2017-07-09] MEDS ORDERED: DEXTROSE 5%-WATER - 50 ML IVPB ONE (10:14)
[2017-07-09 10:17] LABS: ALBUMIN 3.4 g/dl (3.4-5.0); ALK PHOS 265 U/L (45-117); ANION GAP 8 (8-16); BILIRUBIN,DIRECT 0.8 mg/dL (0.0-0.2); BILIRUBIN,TOTAL 1.2 mg/dL (0.2-1.0); BLOOD UREA NITROGEN 7 mg/dL (7-18); CALCIUM 8.5 mg/dL (8.5-10.1); CO2 25 mmol/L (21-32); CREATININE 0.7 mg/dL (0.55-1.02); GLUCOSE,RANDOM 92 mg/dL (74-106); SGOT/AST 98 U/L (15-37); SGPT/ALT 183 U/L (12-78); TOT PROT 5.8 g/dl (6.4-8.2)
[2017-07-09] MEDS: ESCITALOPRAM OXALATE 10 MG TABLET (FP) PO SCH (10:18)
[2017-07-09] MEDS: METOPROLOL TARTRATE 25 MG TABLET (FP) PO SCH (10:18)
[2017-07-09] MEDS: CEFTRIAXONE 1 GM in DEXTROSE 5%-WATER - 50 ML IVPB SCH (10:19)
--- NOTE | 2017-07-09 12:43 | PN ---
Progress Note (short form) - Note Progress Note: GI Preprocedure Note: I discussed the need for ERCP and it's potential complications with Linh who understands Khmer and Mauritanian. I informed of the potential risks for perforation, hemorrhage and multiorgan failure related to ERCP induced pancreatitis. Dr. Blackmon answered her questions regarding the procedure after which she has granted an informed consent.
[2017-07-09] MEDS ORDERED: ONDANSETRON 4 MG/2 ML VIAL ONE (12:51)
[2017-07-09] MEDS ORDERED: ROCURONIUM BROMIDE 50 MG/5 ML VIAL ONE (12:51)
[2017-07-09] MEDS ORDERED: PROPOFOL 20 ML ONE (12:51)
[2017-07-09] MEDS ORDERED: GLYCOPYRROLATE 0.2 MG/1 ML VIAL ONE ×3 (12:52)
[2017-07-09] MEDS ORDERED: NEOSTIGMINE METHYLSULFATE 0.5 MG/ML - 10 ML MDV ONE (12:52)
[2017-07-09] MEDS ORDERED: DEXAMETHASONE SOD PHOSPHATE 10 MG/1 ML VIAL ONE (12:52)
--- NOTE | 2017-07-09 14:13 | PN ---
GI Progress Note Subjective: GI Procedure NOte: Please see scanned ERCP report. The procedure was unsuccessful as I could not cannulate the common bile duct. I informed the patient and discussed the case with Dr Blackmon who will arrange transfer to Dr. Noyola at [facility] and manage postoprocedure orders. No contrast was injected. - Objective Vital Signs: Vital Signs Temperature 98.4 F 07/09/17 10:00 Pulse Rate 58 L 07/09/17 10:00 Respiratory Rate 20 07/09/17 10:00 Blood Pressure 168/83 07/09/17 10:00 O2 Sat by Pulse Oximetry (%) 96 07/09/17 09:00 Labs: CBC, BMP 07/09/17 06:30 07/09/17 06:30 INR, PTT INR 1.14 (0.82-1.09) 07/09/17 06:30
--- NOTE | 2017-07-09 15:37 | DS ---
Physical Exam: Patientn is s/p ERCP by , which was unsuccessful. Patient is being accepted to [facility]. for further care. Patient will be transported By [facility] to [facility] today. C/o having severe abdominal pain, patient is receiving IV antibiotic Rocephin and Metronidazole IV, keep the patient NPO since feeling very nauseas. Also given a dose of Morphine for pain, Protonix IV. discussed with and Dr. blackmon , patient needsto be transferred to [facility] for further care. Vital Signs Temperature 97.9 F 07/09/17 15:49 Pulse Rate 50 L 07/09/17 15:49 Respiratory Rate 20 07/09/17 15:49 Blood Pressure 146/78 07/09/17 15:49 O2 Sat by Pulse Oximetry (%) 95 07/09/17 14:46 CBCD WBC 3.4 K/mm3 (4.0-10.0) L 07/09/17 06:30 RBC 4.23 M/mm3 (3.60-5.2) 07/09/17 06:30 Hgb 11.9 GM/dL (10.7-15.3) 07/09/17 06:30 Hct 36.2 % (32.4-45.2) 07/09/17 06:30 MCV 85.5 fl (80-96) 07/09/17 06:30 MCHC 32.8 g/dl (32.0-36.0) 07/09/17 06:30 RDW 15.0 % (11.6-15.6) 07/09/17 06:30 Plt Count 113 K/MM3 (134-434) L 07/09/17 06:30 MPV 10.1 fl (7.5-11.1) 07/09/17 06:30 CMP Sodium 143 mmol/L (136-145) 07/09/17 06:30 Potassium 4.4 mmol/L (3.5-5.1) 07/09/17 06:30 Chloride 110 mmol/L (98-107) H 07/09/17 06:30 Carbon Dioxide 25 mmol/L (21-32) 07/09/17 06:30 Anion Gap 8 (8-16) 07/09/17 06:30 BUN 7 mg/dL (7-18) 07/09/17 06:30 Creatinine 0.7 mg/dL (0.55-1.02) 07/09/17 06:30 Creat Clearance w eGFR > 60 (>60) 07/09/17 06:30 Random Glucose 92 mg/dL (74-106) 07/09/17 06:30 Calcium 8.5 mg/dL (8.5-10.1) 07/09/17 06:30 Total Bilirubin 1.2 mg/dL (0.2-1.0) H D 07/09/17 06:30 AST 98 U/L (15-37) H 07/09/17 06:30 ALT 183 U/L (12-78) H 07/09/17 06:30 Alkaline Phosphatase 265 U/L (45-117) H 07/09/17 06:30 Total Protein 5.8 g/dl (6.4-8.2) L 07/09/17 06:30 Albumin 3.4 g/dl (3.4-5.0) 07/09/17 06:30 Current Medications Generic Name Dose Route Start Last Admin Trade Name Freq PRN Reason Stop Dose Admin Acetaminophen 1,000 mg 07/07/17 02:45 07/09/17 16:23 Ofirmev Injection - IVPB 1,000 mg Q6H PRN Administration PAIN LEVEL 1-5 Escitalopram Oxalate 10 mg 07/08/17 16:30 07/09/17 10:18 Lexapro - PO 10 mg DAILY ALDAIR Administration Sodium Chloride 1,000 mls @ 100 mls/hr 07/07/17 02:45 07/09/17 18:38 Normal Saline - IV 100 mls/hr ASDIR ALDAIR Administration Metronidazole 500 mg in 100 mls @ 100 mls/hr 07/07/17 15:15 07/09/17 17:09 Flagyl 500mg Premixed Ivpb - IVPB 100 mls/hr Q8H-IV ALDAIR Administration Ceftriaxone Sodium 1 gm/ 50 mls @ 200 mls/hr 07/07/17 15:26 07/09/17 10:19 Dextrose IVPB 200 mls/hr DAILY ALDAIR Administration Metoprolol Tartrate 25 mg 07/08/17 22:00 07/09/17 10:18 Lopressor - PO 25 mg BID ALDAIR Administration Home Medications Medication Instructions Recorded Escitalopram Oxalate [Lexapro -] 10 tab PO DAILY 07/07/17 Meclizine HCl 25 tab PO DAILY 07/07/17 Metoprolol Tartrate 25 tab PO BID 07/07/17 Omeprazole 20 mg PO DAILY 07/07/17 Simvastatin 10 mg PO HS 07/07/17 Temazepam [Restoril] 15 PO HS 07/07/17 Vitamin B Complex 1 tablet PO DAILY 07/07/17 Vitamin D - WEEKLY 07/07/17 Acetaminophen Injection [Ofirmev 1,000 mg IVPB Q6H PRN vial 07/09/17 Injection -] Ceftriaxone [Rocephin -] 1 gm IVPB DAILY vial 07/09/17 <David Villanueva - Last Filed: 07/09/17 19:50> Physical Exam: SUBJECTIVE: Patient seen and examined at bedside. No complaints at time of evaluation. OBJECTIVE: Vital Signs Period Temp Pulse Resp BP Sys/Story Pulse Ox Last 24 Hr 97.9 F-98.8 F 58-76 12-20 129-168/60-87 95-99 PHYSICAL EXAM GENERAL: The patient is awake, alert, and fully oriented, in no acute distress. NECK: Trachea midline, full range of motion, supple. LUNGS: Breath sounds equal, clear to auscultation bilaterally, no wheezes, no crackles, no accessory muscle use. HEART: Regular rate and rhythm, S1, S2 without murmur, rub or gallop. ABDOMEN: Soft, nondistended. Tnederness to palpation in epigastrium and RUQ. normoactive bowel sounds, no guarding, no rebound, no hepatosplenomegaly, no masses. EXTREMITIES: 2+ pulses, warm, well-perfused, no edema. NEUROLOGICAL: Cranial nerves II through X grossly intact. Normal speech, gait not observed. SKIN: Warm, dry, normal turgor, no rashes or lesions noted. LABS Laboratory Results - last 24 hr 07/09/17 07/09/17 07/09/17 06:30 06:30 06:30 WBC 3.4 L RBC 4.23 Hgb 11.9 Hct 36.2 MCV 85.5 MCH 28.0 MCHC 32.8 RDW 15.0 Plt Count 113 L MPV 10.1 Neutrophils % 67.3 Lymphocytes % 23.2 Monocytes % 9.3 Eosinophils % 0.0 Basophils % 0.2 PT with INR 12.90 H INR 1.14 PTT (Actin FS) 29.4 Sodium 143 Potassium 4.4 Chloride 110 H Carbon Dioxide 25 Anion Gap 8 BUN 7 Creatinine 0.7 Creat Clearance w eGFR > 60 Random Glucose 92 Calcium 8.5 Total Bilirubin 1.2 H D Direct Bilirubin 0.8 H AST 98 H ALT 183 H Alkaline Phosphatase 265 H Total Protein 5.8 L Albumin 3.4 HOSPITAL COURSE: Date of Admission:07/07/17 The patient is a 66 yo f w/ PMH cholelithiasis, HTN, CVA who presented to the ED c/o abdominal pain and hematuria. The pain occurred after a fatty meal and was located in the epigastrium and the RUQ. The pain was described as spasmotic , sharp and a 9/10 in intensity. The pain resolved spontaneously. In the ED, a RUQ ultrasound showed post-cholecystectomy changes, a prominent common bile duct as well as prominent hepatic vessels concerning for congestion. A CT of the abdomen was unequivocal for choledocolithiasis. Her LFTs were elevated. Her lipase was WNL. Her T. Bili was 1.7 and her ALP was 251. She was admitted for further workup and treatment of her condition. GI was consulted. The patient was treated with IV Tylenol, Ceftriaxone and Flagyl. An MRCP revealed multiple foci in the mid and lower common bile duct as well as possible gallbladder remnants. An ERCP was performed, but the unsuccessful at cannulating the sphincter of Oddi. The patient was arranged for transfer to [facility]. Prior to transfer, the patient complained of extreme abdominal pain as well as nausea and vomiting. The patient was treated with Morphine, Zofran, Toradol, Dilaudid, Benadryl and protonix. GI was notified. The patient was transferred by [facility] to [facility] for further treatment. Date of Discharge: 07/09/17 Minutes to complete discharge: 70 <Bon Gardiner - Last Filed: 07/10/17 06:39> Discharge Summary Current Active Problems Abnormal CT of liver (Acute) Abnormal CT of the abdomen (Acute) Bilirubinuria (Acute) CVA, old, alterations of sensations (Acute) Elevated LFTs (Acute) HTN (hypertension) (Acute) Hyperbilirubinemia (Acute) - Home Medications Comprehensive Discharge Medication List: Ambulatory Orders Escitalopram Oxalate [Lexapro -] 10 tab PO DAILY 07/07/17 Meclizine HCl 25 tab PO DAILY 07/07/17 Metoprolol Tartrate 25 tab PO BID 07/07/17 Omeprazole 20 mg PO DAILY 07/07/17 Simvastatin 10 mg PO HS 07/07/17 Temazepam [Restoril] 15 PO HS 07/07/17 Vitamin B Complex 1 tablet PO DAILY 07/07/17 Vitamin D - WEEKLY 07/07/17 Acetaminophen Injection [Ofirmev Injection -] 1,000 mg IVPB Q6H PRN vial Ceftriaxone [Rocephin -] 1 gm IVPB DAILY vial 07/09/17 <David Villanueva - Last Filed: 07/09/17 19:50> Reason For Visit: ELEVATED LIVER FUNCTION TESTS Current Active Problems Abnormal CT of liver (Acute) Abnormal CT of the abdomen (Acute) Bilirubinuria (Acute) CVA, old, alterations of sensations (Acute) Elevated LFTs (Acute) HTN (hypertension) (Acute) Hyperbilirubinemia (Acute) - Home Medications Comprehensive Discharge Medication List: Ambulatory Orders Escitalopram Oxalate [Lexapro -] 10 tab PO DAILY 07/07/17 Meclizine HCl 25 tab PO DAILY 07/07/17 Metoprolol Tartrate 25 tab PO BID 07/07/17 Omeprazole 20 mg PO DAILY 07/07/17 Simvastatin 10 mg PO HS 07/07/17 Temazepam [Restoril] 15 PO HS 07/07/17 Vitamin B Complex 1 tablet PO DAILY 07/07/17 Vitamin D - WEEKLY 07/07/17 Acetaminophen Injection [Ofirmev Injection -] 1,000 mg IVPB Q6H PRN vial Ceftriaxone [Rocephin -] 1 gm IVPB DAILY vial 07/09/17 <Bon Gardiner - Last Filed: 07/10/17 06:39> Condition: Improved - Instructions Diet, Activity, Other Instructions: You were admitted for the workup and treatment of your abdominal pain. You are being transferred to another hospital where you can receive further treatment of your condition. Please listen to the instructions that this hospital gives you when you are discharged as they may change the medications. You should follow up with your primary care physician within one week of discharge home. You should follow up with a Technical Services Manager within one week of discharge home. Information for Dr. Blackmon (who saw you during your hospital stay) will be included in your discharge papers. Please call to make an appointment. If you begin to experience chest pain, shortness of breath or if any of your symptoms get worse, please call your doctor or return to the emergency department. Referrals: ON STAFF,NOT [Primary Care Provider] - Sunny Blackmon MD [Staff Physician] - Disposition: TRANSFER ACUTE CARE/OTHER HOSP This patient is new to me today: No Emergency Visit: Yes ED Registration Date: 07/07/17 Care time: The patient presented to the Emergency Department on the above date and was hospitalized for further evaluation of their emergent condition. Critical Care patient: Yes Total Critical Care Time (in minutes): 60 Critical Care Statement: The care of this patient involved high complexity decision making to prevent further life threatening deterioration of the patient 's condition and/or to evaluate & treat vital organ system(s) failure or risk of failure. - Discharge Referral Referred to [facility] No <Bon Gardiner - Last Filed: 07/10/17 06:39>
[2017-07-09 15:51] VITALS: BP 146/78; PULSE 50; TEMP 97.9
[2017-07-09] MEDS ORDERED: morphine SULFATE 4 MG/ML VIAL IVPUSH ONE ×2 (17:00→17:42)
[2017-07-09] MEDS ORDERED: ONDANSETRON 4 MG/2 ML VIAL IVPUSH ONE ×2 (17:34→18:00)
[2017-07-09] MEDS ORDERED: morphine CARPU-JECT 2 MG/1 ML DISP.SYRIN IVPUSH ONE (17:41)
[2017-07-09] MEDS ORDERED: KETOROLAC TROMETHAMINE 30 MG/1 ML VIAL IVPUSH ONE (17:55)
[2017-07-09] MEDS ORDERED: PROCHLORPERAZINE INJECTION 10 MG/2 ML VIAL IVPB ONE (18:00)
[2017-07-09] MEDS ORDERED: PANTOPRAZOLE SODIUM 40 MG VIAL IVPUSH ONE (18:44)
[2017-07-09] MEDS ORDERED: HYDROmorphone HCL CARPU-JECT 4 MG/1 ML DISP.SYRIN IVPB ONE (19:53)
== END 2017-07-09 21:22 | disposition short-term general hospital (02) | DRG 446 ==
LOC: JER 21:19 → JERBED 07-07 01:43 → UNDOADMOB 07-07 01:46 → OBSVTOIN 07-07 02:40 → J8W 07-07 04:14
PROVIDERS: ADMIT Internal Medicine; ATTEND Internal Medicine
PROC: 0FJB8ZZ Inspection of Hepatobiliary Duct, Via Natural or Artificial Opening Endoscopic (ICD-10-PCS; principal; 2017-07-09 12:15)
DX: K80.50 Calculus of bile duct without cholangitis or cholecystitis without obstruction (principal); I69.392 Facial weakness following cerebral infarction; R31.9 Hematuria, unspecified; R79.89 Other specified abnormal findings of blood chemistry; K63.89 Other specified diseases of intestine; I10 Essential (primary) hypertension; K76.0 Fatty (change of) liver, not elsewhere classified; E80.6 Other disorders of bilirubin metabolism; R93.2 Abnormal findings on diagnostic imaging of liver and biliary tract; R93.5 Abnormal findings on diagnostic imaging of other abdominal regions, including retroperitoneum
CPT/HCPCS: 36415; 74177-TC; 74181-TC; 76000-TC-FY; 76705-TC; 80053; 81003; 81015; 82248; 83690; 83735; 84100; 85025; 85610; 85730; 86850; 86900; 86901; 87040; 87086; 99281-25; G0378; J0131; J1100; J7030

== ENCOUNTER 2021-08-22 07:35 | Inpatient (IN) | payer OTHER ==
[2021-08-22] MEDS ORDERED: ACETAMINOPHEN 1000 MG/100 ML BAG IVPB ONE (08:31)
[2021-08-22 08:59] LABS: PH,URINE 5.5 (5.0-8.0); URINE APPEARANCE CLEAR; URINE BILIRUBIN NEGATIVE (NEGATIVE); URINE COLOR YELLOW; URINE GLUCOSE (UA) NEGATIVE (NEGATIVE); URINE KETONE NEGATIVE (NEGATIVE); URINE LEUK ESTERASE NEGATIVE (NEGATIVE); URINE NITRITE NEGATIVE (NEGATIVE); URINE PROTEIN NEGATIVE (NEGATIVE); URINE UROBILINOGEN 0.2 mg/dL (0.2-1.0)
[2021-08-22 09:11] LABS: BASO % 0.1 % (0-2.0); HEMATOCRIT 38.4 % (32.4-45.2); HEMOGLOBIN 12.6 GM/dL (10.7-15.3); LYMPH % 6.3 % (8-40); MCH 27.8 pg (25.7-33.7); MCHC 32.9 g/dl (32.0-36.0); MEAN CELL VOLUME 84.6 fl (80-96); MEAN PLT VOLUME 9.3 fl (7.5-11.1); MONO % 8.8 % (3.8-10.2); NEUT % 84.8 % (42.8-82.8); PLATELET COUNT 123 10^3/uL (134-434); RBC 4.55 M/mm3 (3.60-5.2); RDW 15.1 % (11.6-15.6); WHITE BLOOD COUNT 7.6 K/mm3 (4.0-10.0)
[2021-08-22 09:15] LABS: INR 1.14 (0.83-1.09); PROTHROMBIN TIME (PATIENT) 13.1 SEC (9.7-13.0)
[2021-08-22 09:17] LABS: ACTIVATED PTT 29.5 SECONDS (25.2-36.5)
[2021-08-22] MEDS ORDERED: ACETAMINOPHEN INJECTION 100 ML IVPB ONE (09:23)
[2021-08-22 09:28] LABS: CALCIUM 9.2 mg/dL (8.5-10.1)
[2021-08-22 09:29] LABS: BLOOD UREA NITROGEN 14.7 mg/dL (7-18)
[2021-08-22 09:31] LABS: CREATININE 0.8 mg/dL (0.55-1.3)
[2021-08-22 09:34] LABS: TOT PROT 6.6 g/dl (6.4-8.2)
[2021-08-22] MEDS ORDERED: PIPERACILLIN/TAZOB 3.375 GM 3.375 GM in DEXTROSE 5%-WATER - 50 ML IVPB ONE (14:42)
[2021-08-22] MEDS ORDERED: PIPERACILLIN/TAZOB 3.375 GM 3.375 GM/50 ML BAG IVPB ONE (15:24)
[2021-08-22] MEDS: D5-1/2NS+20 MEQ KCL - 20 MEQ/1,000 ML INFUS.BAG IV SCH (19:55)
[2021-08-23 00:18] VITALS: BMI 35.7
[2021-08-23] MEDS: D5-1/2NS+20 MEQ KCL - 20 MEQ/1,000 ML INFUS.BAG IV SCH ×2 (04:47→17:32)
[2021-08-23 09:46] LABS: BASO % 0.1 % (0-2.0); HEMATOCRIT 36.3 % (32.4-45.2); HEMOGLOBIN 12.2 GM/dL (10.7-15.3); LYMPH % 5.9 % (8-40); MCH 28.4 pg (25.7-33.7); MCHC 33.6 g/dl (32.0-36.0); MEAN CELL VOLUME 84.5 fl (80-96); MEAN PLT VOLUME 9.7 fl (7.5-11.1); MONO % 10.1 % (3.8-10.2); NEUT % 83.9 % (42.8-82.8); PLATELET COUNT 131 10^3/uL (134-434); RDW 15.6 % (11.6-15.6); WHITE BLOOD COUNT 13.3 K/mm3 (4.0-10.0)
[2021-08-23 09:56] LABS: INR 1.46 (0.83-1.09); PROTHROMBIN TIME (PATIENT) 16.9 SEC (9.7-13.0)
[2021-08-23 10:05] LABS: CALCIUM 8.8 mg/dL (8.5-10.1)
[2021-08-23 10:06] LABS: ALBUMIN 3.4 g/dl (3.4-5.0); BLOOD UREA NITROGEN 16.2 mg/dL (7-18)
[2021-08-23 10:12] LABS: BILIRUBIN,TOTAL 2.2 mg/dL (0.2-1)
[2021-08-23] MEDS ORDERED: MIDAZOLAM HCL 2 MG/2 ML SINGLE DOSE VIAL ONE (10:16)
[2021-08-23] MEDS ORDERED: FENTANYL CITRATE/PF 50 MCG/ML VIAL ONE ×5 (10:16→14:59)
[2021-08-23] MEDS ORDERED: ROCURONIUM BROMIDE 50 MG/5 ML SYRINGE ONE ×2 (10:17→12:01)
[2021-08-23] MEDS ORDERED: PIPERACILLIN/TAZOB 3.375 GM 3.375 GM in DEXTROSE 5%-WATER - 50 ML IVPB SCH (10:30)
[2021-08-23] MEDS ORDERED: PIPERACILLIN/TAZOBACTAM 3.375 GM VIAL IVPB ONE ×4 (10:35→17:21)
[2021-08-23] MEDS ORDERED: BUPIVACAINE HCL/PF 0.5% (5MG/ML) 10 ML VIAL NR ONE ×2 (10:56)
[2021-08-23] MEDS ORDERED: HYDROmorphone HCl 2 MG/ML VIAL ONE (12:14)
[2021-08-23] MEDS ORDERED: SUGAMMADEX SODIUM 200 MG/2 ML VIAL ONE (12:57)
[2021-08-23] MEDS ORDERED: ONDANSETRON 4 MG/2 ML VIAL IVPUSH PRN ×2 (14:02→14:26)
[2021-08-23] MEDS ORDERED: HYDROmorphone *PCA* 6MG/30ML DISP.SYRIN PCA SCH ×2 (14:15→14:26)
[2021-08-23] MEDS ORDERED: LACTATED RINGERS SOLUTION 1,000 ML IV SCH ×2 (14:15→14:26)
[2021-08-23] MEDS ORDERED: HYDROmorphone *PCA* 10MG/50ML DISP.SYRIN PCA SCH ×2 (14:30)
[2021-08-23] MEDS ORDERED: DOCUSATE SODIUM 100 MG CAPSULE (FP) PO PRN (14:35)
[2021-08-23] MEDS ORDERED: HYDROmorphone *PCA* 10MG/50ML DISP.SYRIN ONE (15:23)
[2021-08-23] MEDS ORDERED: DEXTROSE 5%-WATER - 50 ML IVPB ONE (17:22)
[2021-08-23] MEDS: PIPERACILLIN/TAZOB 3.375 GM 3.375 GM in DEXTROSE 5%-WATER - 50 ML IVPB SCH (17:33)
[2021-08-23] MEDS ORDERED: IBUPROFEN 600 MG TABLET (FP) PO PRN (20:00)
[2021-08-23] MEDS ORDERED: ACETAMINOPHEN 325 MG TABLET (FP) PO PRN (20:30)
[2021-08-24] MEDS ORDERED: PIPERACILLIN/TAZOBACTAM 3.375 GM VIAL IVPB ONE ×3 (01:02→17:26)
[2021-08-24] MEDS ORDERED: DEXTROSE 5%-WATER - 50 ML IVPB ONE ×3 (01:03→17:26)
[2021-08-24] MEDS: D5-1/2NS+20 MEQ KCL - 20 MEQ/1,000 ML INFUS.BAG IV SCH ×2 (01:42→16:09)
[2021-08-24] MEDS: PIPERACILLIN/TAZOB 3.375 GM 3.375 GM in DEXTROSE 5%-WATER - 50 ML IVPB SCH ×3 (01:44→18:13)
[2021-08-24] MEDS: MELATONIN 5 MG TABLETS PO PRN (02:20)
[2021-08-24 08:09] LABS: CARCINOEMBRYONIC ANTIGEN 3.2 ng/mL (0.0-4.7)
[2021-08-24 08:45] LABS: HEMATOCRIT 33.5 % (32.4-45.2); HEMOGLOBIN 11.2 GM/dL (10.7-15.3); LYMPH % 6.7 % (8-40); MCH 28.5 pg (25.7-33.7); MCHC 33.4 g/dl (32.0-36.0); MEAN CELL VOLUME 85.1 fl (80-96); MEAN PLT VOLUME 9.9 fl (7.5-11.1); MONO % 9.1 % (3.8-10.2); NEUT % 84.2 % (42.8-82.8); PLATELET COUNT 102 10^3/uL (134-434); RBC 3.94 M/mm3 (3.60-5.2); RDW 15.6 % (11.6-15.6); WHITE BLOOD COUNT 7.3 K/mm3 (4.0-10.0)
[2021-08-24 09:14] LABS: CALCIUM 8.5 mg/dL (8.5-10.1)
[2021-08-24 09:15] LABS: ALBUMIN 2.8 g/dl (3.4-5.0); BLOOD UREA NITROGEN 16.7 mg/dL (7-18)
[2021-08-24 09:18] LABS: CREATININE 0.9 mg/dL (0.55-1.3)
[2021-08-24 09:21] LABS: BILIRUBIN,TOTAL 0.9 mg/dL (0.2-1); TOT PROT 5.3 g/dl (6.4-8.2)
[2021-08-24] MEDS ORDERED: oxyCODONE HCL 5 MG TABLET PO PRN (14:28)
[2021-08-24] MEDS: IBUPROFEN 600 MG TABLET (FP) PO SCH ×2 (16:07→21:27)
[2021-08-24] MEDS: DEXTROSE 5%-0.45% SALINE 1,000 ML IV SCH (18:12)
[2021-08-24] MEDS: oxyCODONE HCL 5 MG TABLET PO PRN (18:13)
[2021-08-25] MEDS ORDERED: PIPERACILLIN/TAZOBACTAM 3.375 GM VIAL IVPB ONE ×2 (00:39→09:42)
[2021-08-25] MEDS ORDERED: DEXTROSE 5%-WATER - 50 ML IVPB ONE ×2 (00:39→09:42)
[2021-08-25] MEDS: PIPERACILLIN/TAZOB 3.375 GM 3.375 GM in DEXTROSE 5%-WATER - 50 ML IVPB SCH ×2 (01:01→10:28)
[2021-08-25] MEDS: IBUPROFEN 600 MG TABLET (FP) PO SCH ×4 (03:43→20:35)
[2021-08-25] MEDS: oxyCODONE HCL 5 MG TABLET PO PRN (04:20)
[2021-08-25] MEDS: DEXTROSE 5%-0.45% SALINE 1,000 ML IV SCH ×2 (05:23→20:30)
[2021-08-25 09:26] LABS: BASO % 0.1 % (0-2.0); HEMATOCRIT 32.5 % (32.4-45.2); HEMOGLOBIN 10.8 GM/dL (10.7-15.3); LYMPH % 13.3 % (8-40); MCH 28.3 pg (25.7-33.7); MCHC 33.4 g/dl (32.0-36.0); MEAN CELL VOLUME 84.7 fl (80-96); MEAN PLT VOLUME 9.6 fl (7.5-11.1); MONO % 9.2 % (3.8-10.2); NEUT % 77.4 % (42.8-82.8); PLATELET COUNT 128 10^3/uL (134-434); RBC 3.84 M/mm3 (3.60-5.2); RDW 15.3 % (11.6-15.6); WHITE BLOOD COUNT 5.2 K/mm3 (4.0-10.0)
[2021-08-25 09:44] LABS: ALBUMIN 2.6 g/dl (3.4-5.0); CALCIUM 8.3 mg/dL (8.5-10.1)
[2021-08-25 09:45] LABS: BLOOD UREA NITROGEN 18.5 mg/dL (7-18)
[2021-08-25 09:47] LABS: CREATININE 0.8 mg/dL (0.55-1.3)
[2021-08-25 09:49] LABS: BILIRUBIN,TOTAL 0.6 mg/dL (0.2-1); TOT PROT 5.2 g/dl (6.4-8.2)
[2021-08-25] MEDS: METOPROLOL TARTRATE 25 MG TABLET (FP) PO SCH (22:06)
[2021-08-26] MEDS: oxyCODONE HCL 5 MG TABLET PO PRN ×2 (00:31→11:16)
[2021-08-26] MEDS: IBUPROFEN 600 MG TABLET (FP) PO SCH ×4 (02:38→22:03)
[2021-08-26 09:19] LABS: BASO % 0.2 % (0-2.0); HEMATOCRIT 32.3 % (32.4-45.2); HEMOGLOBIN 10.5 GM/dL (10.7-15.3); LYMPH % 16.7 % (8-40); MCH 27.6 pg (25.7-33.7); MCHC 32.5 g/dl (32.0-36.0); MEAN CELL VOLUME 85.1 fl (80-96); MEAN PLT VOLUME 9.4 fl (7.5-11.1); MONO % 11.8 % (3.8-10.2); NEUT % 71.3 % (42.8-82.8); PLATELET COUNT 133 10^3/uL (134-434); RDW 15.3 % (11.6-15.6); WHITE BLOOD COUNT 4.7 K/mm3 (4.0-10.0)
[2021-08-26 09:58] LABS: BLOOD UREA NITROGEN 17.2 mg/dL (7-18); CALCIUM 8.5 mg/dL (8.5-10.1)
[2021-08-26 09:59] LABS: ALBUMIN 2.6 g/dl (3.4-5.0)
[2021-08-26 10:00] LABS: CREATININE 0.7 mg/dL (0.55-1.3)
[2021-08-26 10:01] LABS: TOT PROT 5.2 g/dl (6.4-8.2)
[2021-08-26 10:02] LABS: BILIRUBIN,TOTAL 1.6 mg/dL (0.2-1)
[2021-08-26] MEDS ORDERED: DEXTROSE 5%-WATER - 50 ML IVPB ONE ×2 (10:05→16:48)
[2021-08-26] MEDS ORDERED: PIPERACILLIN/TAZOBACTAM 3.375 GM VIAL IVPB ONE ×2 (10:05→16:48)
[2021-08-26] MEDS: METOPROLOL TARTRATE 25 MG TABLET (FP) PO SCH ×2 (10:17→22:04)
[2021-08-26] MEDS: ESCITALOPRAM OXALATE 10 MG TABLET PO SCH (10:17)
[2021-08-26] MEDS: PIPERACILLIN/TAZOB 3.375 GM 3.375 GM in DEXTROSE 5%-WATER - 50 ML IVPB SCH ×2 (10:18→17:05)
[2021-08-26] MEDS: ENOXAPARIN NA (PORCINE) 40 MG/0.4 ML DISP.SYRIN SQ SCH (17:03)
[2021-08-26] MEDS: DEXTROSE 5%-0.45% SALINE 1,000 ML IV SCH (17:04)
[2021-08-26] MEDS: MELATONIN 5 MG TABLETS PO PRN (22:54)
[2021-08-27] MEDS ORDERED: PIPERACILLIN/TAZOBACTAM 3.375 GM VIAL IVPB ONE ×3 (01:13→18:02)
[2021-08-27] MEDS ORDERED: DEXTROSE 5%-WATER - 50 ML IVPB ONE ×3 (01:13→18:02)
[2021-08-27] MEDS: PIPERACILLIN/TAZOB 3.375 GM 3.375 GM in DEXTROSE 5%-WATER - 50 ML IVPB SCH ×3 (01:46→18:09)
[2021-08-27] MEDS: IBUPROFEN 600 MG TABLET (FP) PO SCH ×4 (02:48→22:04)
[2021-08-27 09:42] LABS: BASO % 0.2 % (0-2.0); HEMATOCRIT 34.2 % (32.4-45.2); LYMPH % 20.2 % (8-40); MCH 27.3 pg (25.7-33.7); MCHC 32.2 g/dl (32.0-36.0); MEAN CELL VOLUME 84.8 fl (80-96); MEAN PLT VOLUME 9.5 fl (7.5-11.1); MONO % 11.7 % (3.8-10.2); NEUT % 67.9 % (42.8-82.8); PLATELET COUNT 172 10^3/uL (134-434); RBC 4.03 M/mm3 (3.60-5.2); RDW 15.2 % (11.6-15.6)
[2021-08-27] MEDS: METOPROLOL TARTRATE 25 MG TABLET (FP) PO SCH ×2 (10:07→22:04)
[2021-08-27] MEDS: ESCITALOPRAM OXALATE 10 MG TABLET PO SCH (10:07)
[2021-08-27] MEDS: ENOXAPARIN NA (PORCINE) 40 MG/0.4 ML DISP.SYRIN SQ SCH (10:07)
[2021-08-27 10:45] LABS: CALCIUM 9.2 mg/dL (8.5-10.1)
[2021-08-27 10:46] LABS: ALBUMIN 2.8 g/dl (3.4-5.0); BLOOD UREA NITROGEN 10.6 mg/dL (7-18)
[2021-08-27 10:49] LABS: CREATININE 0.7 mg/dL (0.55-1.3)
[2021-08-27 10:50] LABS: TOT PROT 5.6 g/dl (6.4-8.2)
[2021-08-27] MEDS: POLYETHYLENE GLYCOL (HEALTHYLAX) 3350 17 GM PACKET PO PRN (13:03)
[2021-08-27] MEDS ORDERED: amLODIPine BESYLATE 5 MG TABLET (FP) PO ONE (13:45)
[2021-08-27] MEDS: DEXTROSE 5%-0.45% SALINE 1,000 ML IV SCH (18:10)
[2021-08-28] MEDS ORDERED: PIPERACILLIN/TAZOBACTAM 3.375 GM VIAL IVPB ONE ×2 (01:27→09:49)
[2021-08-28] MEDS ORDERED: DEXTROSE 5%-WATER - 50 ML IVPB ONE ×2 (01:27→09:49)
[2021-08-28] MEDS: PIPERACILLIN/TAZOB 3.375 GM 3.375 GM in DEXTROSE 5%-WATER - 50 ML IVPB SCH ×2 (02:18→10:47)
[2021-08-28] MEDS: IBUPROFEN 600 MG TABLET (FP) PO SCH ×4 (03:38→21:12)
[2021-08-28] MEDS: ESCITALOPRAM OXALATE 10 MG TABLET PO SCH (10:07)
[2021-08-28] MEDS: ENOXAPARIN NA (PORCINE) 40 MG/0.4 ML DISP.SYRIN SQ SCH (10:07)
[2021-08-28] MEDS: METOPROLOL TARTRATE 25 MG TABLET (FP) PO SCH ×2 (10:07→21:13)
[2021-08-28] MEDS: amLODIPine BESYLATE 10 MG TABLET (FP) PO SCH (10:07)
[2021-08-28] MEDS: metroNIDAZOLE 250 MG TABLET PO SCH ×2 (13:32→21:13)
[2021-08-29] MEDS: IBUPROFEN 600 MG TABLET (FP) PO SCH ×4 (01:37→21:51)
[2021-08-29] MEDS: metroNIDAZOLE 250 MG TABLET PO SCH ×3 (07:00→21:53)
[2021-08-29] MEDS: ESCITALOPRAM OXALATE 10 MG TABLET PO SCH (09:45)
[2021-08-29] MEDS: METOPROLOL TARTRATE 25 MG TABLET (FP) PO SCH ×2 (09:45→21:53)
[2021-08-29] MEDS: amLODIPine BESYLATE 10 MG TABLET (FP) PO SCH (09:46)
[2021-08-29] MEDS: ENOXAPARIN NA (PORCINE) 40 MG/0.4 ML DISP.SYRIN SQ SCH (09:46)
[2021-08-30] MEDS: IBUPROFEN 600 MG TABLET (FP) PO SCH ×4 (02:28→21:16)
[2021-08-30] MEDS: metroNIDAZOLE 250 MG TABLET PO SCH ×3 (05:59→21:15)
[2021-08-30] MEDS: HYDROCHLOROTHIAZIDE 12.5 MG CAPSULE (FP) PO SCH (11:00)
[2021-08-30] MEDS: ESCITALOPRAM OXALATE 10 MG TABLET PO SCH (11:00)
[2021-08-30] MEDS: amLODIPine BESYLATE 10 MG TABLET (FP) PO SCH (11:00)
[2021-08-30] MEDS: ENOXAPARIN NA (PORCINE) 40 MG/0.4 ML DISP.SYRIN SQ SCH (11:01)
[2021-08-30] MEDS: METOPROLOL TARTRATE 25 MG TABLET (FP) PO SCH ×2 (11:01→21:17)
[2021-08-30] MEDS: POLYETHYLENE GLYCOL (HEALTHYLAX) 3350 17 GM PACKET PO PRN (11:01)
[2021-08-30] MEDS ORDERED: ALBUTEROL SO4 2.5/IPRATROPIUM 0.5 INH SOL 3 ML VIAL.NEB. NEB PRN (16:04)
[2021-08-31] MEDS: IBUPROFEN 600 MG TABLET (FP) PO SCH ×3 (03:30→13:45)
[2021-08-31] MEDS: metroNIDAZOLE 250 MG TABLET PO SCH ×2 (06:23→13:45)
[2021-08-31] MEDS: ENOXAPARIN NA (PORCINE) 40 MG/0.4 ML DISP.SYRIN SQ SCH (09:52)
[2021-08-31] MEDS: HYDROCHLOROTHIAZIDE 12.5 MG CAPSULE (FP) PO SCH (09:53)
[2021-08-31] MEDS: METOPROLOL TARTRATE 25 MG TABLET (FP) PO SCH (09:53)
[2021-08-31] MEDS: amLODIPine BESYLATE 10 MG TABLET (FP) PO SCH (09:54)
[2021-08-31] MEDS: ESCITALOPRAM OXALATE 10 MG TABLET PO SCH (09:54)
[2021-08-31 14:33] VITALS: TEMP 98.1
[2021-08-31 18:21] VITALS: BP 136/58; PULSE 61
== END 2021-08-31 18:39 | disposition home or self-care (01) | DRG 414 ==
LOC: JER 07:35 → JERBED 14:40 → J5S 21:14
PROVIDERS: ADMIT Internal Medicine; ATTEND Internal Medicine
PROC: 0FJ44ZZ Inspection of Gallbladder, Percutaneous Endoscopic Approach (ICD-10-PCS; 2021-08-23)
PROC: 0FT40ZZ Resection of Gallbladder, Open Approach (ICD-10-PCS; principal; 2021-08-23 10:30)
DX: K80.00 Calculus of gallbladder with acute cholecystitis without obstruction (principal); J96.01 Acute respiratory failure with hypoxia; J98.11 Atelectasis; I10 Essential (primary) hypertension; E78.5 Hyperlipidemia, unspecified; K76.0 Fatty (change of) liver, not elsewhere classified; D69.6 Thrombocytopenia, unspecified; R16.0 Hepatomegaly, not elsewhere classified; R79.89 Other specified abnormal findings of blood chemistry; Z86.73 Personal history of transient ischemic attack (TIA), and cerebral infarction without residual deficits; K66.0 Peritoneal adhesions (postprocedural) (postinfection)
CPT/HCPCS: 36415; 71045-TC-FY; 74018-TC-FY; 74177-TC; 76705-TC; 80053; 81003; 82105; 82150; 82378; 83690; 84484; 85025; 85610; 85730; 86140; 86301; 86850; 86900; 86901; 87040; 87070; 87075; 87076; 87086; 87186; 87205; 88300-TC; 88304-TC; 93005; 93010; 94010; 94760; 94761; 99285-25; C9803-CS; Q9967; U0003; U0005